=== PATIENT | male | born 2000 ===

== ENCOUNTER 2023-05-28 14:28 | Emergency (ER) | payer OTHER, SELFPAY ==
--- NOTE | ~2023-05-28 | XR_ITS ---
EXAMINATION: XR WRIST, RIGHT XR HAND, RIGHT CLINICAL INFORMATION: Pain. COMPARISON: None available. TECHNIQUE: 3 views of the right wrist/right hand. FINDINGS: Subtle minimally displaced fracture at the base of the fifth metacarpal. No other fracture or subluxation. No unexpected radiopaque foreign bodies. XR/XR hand wrist RT IMPRESSION: Minimally displaced fracture at the base of the fifth metacarpal.
--- NOTE | 2023-05-28 14:41 | ED_ITS ---
HPI - General Adult General Chief complaint: Psychiatric Symptoms Stated complaint: ? hand fracture Time Seen by Provider: 05/28/23 16:02 Source: patient Mode of arrival: ambulatory Limitations: no limitations History of Present Illness HPI narrative: Patient is a 22 year old male who presents to the emergency department who presents emergency department for evaluation of right hand pain, and suicidal ideations. He reports that he has been dealing with anger issues recently. Reporting suicidal ideations, when asked if he has a plan he reports ?the usual stuff, jumping off something?. He endorses recreational marijuana usage. Denies any additional drug or routine alcohol usage. He reports compliance with his Keppra and topiramate for his seizure disorder. Yesterday out of anger he punched a metal door with his right hand, he is right-hand dominant. Currently experiencing pain along the ulnar aspect of hand. Denies any additional physical complaints at this time Related Data Home Medications Medication Instructions Recorded Confirmed levetiracetam 750 mg 1,500 mg PO BID 05/28/23 05/28/23 tablet,extended release 24 hr topiramate 25 mg tablet 25 mg PO BID 05/28/23 05/28/23 Allergies Allergy/AdvReac Type Severity Reaction Status Date / Time No Known Allergies Allergy Verified 05/28/23 14:46 Review of Systems Review of Systems: Constitutional : No Fever, No Chills ENT/Mouth : No Ear Pain, No Nasal Congestion, No sore throat Eyes: No Eye Pain, No Swelling, No Redness Cardiovascular : No Chest Pain, No SOB Respiratory : No Cough, No Sputum, No Dyspnea Gastrointestinal : No Nausea, No Vomiting, No Diarrhea, No Hematochezia, No Melena Genitourinary : No Dysuria, No Urinary Frequency, No Hematuria Musculoskeletal : Positive as per HPI Skin : No Skin Lesions, No rash Neuro : No Weakness, No Numbness, No Paresthesias, No Dizziness, No Headache Psych : positive Anxiety, positive Depression, positive SI/HI Heme/Lymph: No Lymphadenopathy Endocrine : No Polyuria, No Polydipsia Yes all other systems are reviewed and are negative [facility] Past Medical History Attestation statement: The following information was validated with the patient. Source: old records reviewed Social History Social History Alcohol intake: current Alcohol intake frequency: a few times a week Alcohol type: beer Smoked in Last 30 Days: Yes Use of substances other than those prescribed or required for medical reasons: Yes Substance Use Type: Marijuana Substance Use Frequency: Chronic Longstanding Last Used Substance: Days (ago) Any prior treatment program specific to substance use: No Advance Directives: No Advance Directives Information Provided: No Healthcare Proxy: No Guardian: No Physical Exam ED Vital Signs: Vital Signs - 24 hr 05/28/23 15:29 Temperature 97.0 F Pulse Rate 83 Respiratory Rate 18 Blood Pressure 125/79 Pulse Oximetry 100 Oxygen Delivery Method Room Air BMI result Body Mass Index 21.4 Appearance: Alert.?Oriented to person, place and time. No acute distress.?Normal affect. Eyes: Pupils equal, round and reactive to light.? ENT: Pharynx normal.?? Neck: Normal inspection.? Neck supple.?? CVS: Heart sounds normal. Normal heart rate and rhythm.? Pulses normal.?? Respiratory: No respiratory distress.? Lung sounds clear to auscultation bilaterally?? Abdomen: Soft and non-tender. Normoactive bowel sounds. ?? Skin: Skin warm and dry.? Normal skin color.? Extremities: No extremity edema.? 2+ radial pulse bilaterally. Ecchymosis over the palm are right hand over 3rd-5th metacarpal. Full AROM to right hand and wrist. Neuro: Moves all extremities spontaneously. Sensation intact bilaterally. CN II- XII intact. No focal neuro deficits. Ambulates with normal steady gait. Course Course Course Narrative: This is an RME: Additional HPI, ROS, PE not included below will be deferred to primary provider. 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 He states that he became angry and punched a metal door. he states that he believes that he has anger issues and expresses vague SI, none currently. Reporting that he would like to be evaluated by crisis. Plan: labs, UDS, Xr right hand and wrist, keppra and topiramate levels ordered. Reevaluation(s) Reevaluation #1: CBC and CMP are overall unremarkable. XR revealing fracture at the base of the 5th metacarpal, placed in an ulnar gutter splint, remained neurovascularly intact distally after application. Will require outpatient follow-up with Orthopedics. Time: 17:02 Reevaluation #2: Patient was evaluated by their team, at this time patient is cleared for discharge home, he will have [facility] follow-up within the next few days, received therapy referrals, safety plan developed with patient and girlfriend. Reviewed reasons to return back to the emergency department Time: 19:57 Medications Administered Discontinued Medications Generic Name Dose Route Start Last Admin Trade Name Freq PRN Reason Stop Dose Admin Topiramate 25 mg 05/28/23 21:00 05/28/23 20:10 Topiramate 25 Mg Tablet PO 25 mg BID GERRY Administration Medical Decision Making Medical Decision Making [facility] Narrative: Patient is a 22-year-old male with past medical history of juvenile myoclonic ep ilepsy on Keppra and Topiramate, benign brain tumor followed by Neurology Dr. Bob, presenting to the emergency department for evaluation traumatic right hand pain and suicidal ideations as per HPI. At the time my examination he is overall well-appearing. The right upper extremity is neurovascularly intact distally, ecchymosis as per physical exam, full AROM. Will obtain XR to evaluate for fracture. Otherwise physical examination is benign. Endorsing SI with a vague plan. Will refer to care team for further evaluation as to whether inpatient psychiatric services are required. Med reconciliation to be completed. Basic labs for medical clearance. Differential Diagnosis Differential Diagnoses: The differential diagnosis associated with the presentation includes (Depression, anxiety, suicidal ideations, mood disorder, substance use disorder, fracture, sprain) Admission/Observation Consideration of admission/observation: Escalation of care including admission/observation considered (Physician observation for care team evaluation and determination as to whether inpatient psychiatric services are required.) Lab Data [facility] Lab Attestation statement: I reviewed the patient's lab results. (See course narrative for further detail) 05/28/23 16:27 05/28/23 16:26 Labs: Lab Results 05/28/23 05/28/23 05/28/23 Range/Units 16:06 16:06 16:26 WBC (4.8-10.8) X10*3/uL RBC (4.60-5.80) X10*6/uL Hgb (14.0-18.0) g/dl Hct (42.0-52.0) % MCV (80.0-98.0) fL MCH (27.0-33.0) pg MCHC (31.0-36.0) g/dl RDW (11.0-16.0) % Plt Count (160-400) X10*3/uL MPV (9.4-12.4) fL Immature Gran % (Auto) (0.0-0.4) % Neut % (Auto) (45-73) % Lymph % (Auto) (20-40) % Delta % (Auto) (2-11) % Eos % (Auto) (0-4) % Baso % (Auto) (0-2) % Lymph # (Auto) (1.2-4.9) X10*3/uL Delta # (Auto) (0.1-1.2) X10*3/uL Eos # (Auto) (0.0-0.4) X10*3/uL Baso # (Auto) (0.0-0.2) X10*3/uL Abs Immat Gran (auto) (0.00-0.03) X10*3/uL Absolute Neuts (auto) (2.0-8.3) x10*3/uL Absolute Nucleated RBC (0.0-0.012) X10*3/uL Nucleated RBC % (auto) (0.0-0.2) /100WBC Sodium 141 (135-145) mmol/L Potassium 4.3 (3.3-5.1) mmol/L Chloride 106 (96-108) mmol/L Carbon Dioxide 24 (22-29) mmol/L Anion Gap 15 (12-20) BUN 11 (9-16) mg/dL Creatinine 0.98 (0.5-1.4) mg/dL Estim Creat Clear Calc 117.5 Estimated GFR > 60 Random Glucose 95 (60-115) mg/dL Calcium 9.8 (8.4-10.2) mg/dL Total Bilirubin 0.6 (0.0-1.0) mg/dL Direct Bilirubin 0.3 (0.0-0.5) mg/dL AST 14 (5-37) U/L ALT 20 (0-40) U/L Alkaline Phosphatase 67 (39-117) U/L Total Protein 8.1 H (6.5-8.0) g/dL Albumin 4.5 (3.5-5.0) g/dL Urine Color Yellow Urine Appearance Clear Urine pH 6.5 (5.0-9.0) Ur Specific [place] 1.025 (1.005-1.025) Urine Protein Negative (Neg-Trace) mg/dL Urine Glucose (UA) Negative (Negative) mg/dL Urine Ketones Negative (Negative) mg/dL Urine Blood Negative (Negative) Urine Nitrite Negative (Negative) Ur Leukocyte Esterase Negative (Negative) Urine Opiates Screen Not Detected (Not Detect) Urine Fentanyl Screen Not Detected (Not Detect) Ur Barbiturates Screen Not Detected (Not Detect) Ur Phencyclidine Scrn Not Detected (Not Detect) Ur Amphetamines Screen Not Detected (Not Detect) U Benzodiazepines Scrn Not Detected (Not Detect) Urine Cocaine Screen Not Detected (Not Detect) U Marijuana (THC) Screen POSITIVE H (Not Detect) Ethyl Alcohol mg/dL 05/28/23 05/28/23 Range/Units 16:26 16:27 WBC 9.5 (4.8-10.8) X10*3/uL RBC 5.57 (4.60-5.80) X10*6/uL Hgb 15.6 (14.0-18.0) g/dl Hct 48.8 (42.0-52.0) % MCV 87.6 (80.0-98.0) fL MCH 28.0 (27.0-33.0) pg MCHC 32.0 (31.0-36.0) g/dl RDW 12.9 (11.0-16.0) % Plt Count 277 (160-400) X10*3/uL MPV 9.7 (9.4-12.4) fL Immature Gran % (Auto) 0.4 (0.0-0.4) % Neut % (Auto) 67.9 (45-73) % Lymph % (Auto) 24.2 (20-40) % Delta % (Auto) 6.3 (2-11) % Eos % (Auto) 0.7 (0-4) % Baso % (Auto) 0.5 (0-2) % Lymph # (Auto) 2.3 (1.2-4.9) X10*3/uL Delta # (Auto) 0.6 (0.1-1.2) X10*3/uL Eos # (Auto) 0.1 (0.0-0.4) X10*3/uL Baso # (Auto) 0.1 (0.0-0.2) X10*3/uL Abs Immat Gran (auto) 0.04 H (0.00-0.03) X10*3/uL Absolute Neuts (auto) 6.4 (2.0-8.3) x10*3/uL Absolute Nucleated RBC 0.000 (0.0-0.012) X10*3/uL Nucleated RBC % (auto) 0.0 (0.0-0.2) /100WBC Sodium (135-145) mmol/L Potassium (3.3-5.1) mmol/L Chloride (96-108) mmol/L Carbon Dioxide (22-29) mmol/L Anion Gap (12-20) BUN (9-16) mg/dL Creatinine (0.5-1.4) mg/dL Estim Creat Clear Calc Estimated GFR Random Glucose (60-115) mg/dL Calcium (8.4-10.2) mg/dL Total Bilirubin (0.0-1.0) mg/dL Direct Bilirubin (0.0-0.5) mg/dL AST (5-37) U/L ALT (0-40) U/L Alkaline Phosphatase (39-117) U/L Total Protein (6.5-8.0) g/dL Albumin (3.5-5.0) g/dL Urine Color Urine Appearance Urine pH (5.0-9.0) Ur Specific [place] (1.005-1.025) Urine Protein (Neg-Trace) mg/dL Urine Glucose (UA) (Negative) mg/dL Urine Ketones (Negative) mg/dL Urine Blood (Negative) Urine Nitrite (Negative) Ur Leukocyte Esterase (Negative) Urine Opiates Screen (Not Detect) Urine Fentanyl Screen (Not Detect) Ur Barbiturates Screen (Not Detect) Ur Phencyclidine Scrn (Not Detect) Ur Amphetamines Screen (Not Detect) U Benzodiazepines Scrn (Not Detect) Urine Cocaine Screen (Not Detect) U Marijuana (THC) Screen (Not Detect) Ethyl Alcohol < 10 mg/dL Independent Interpretation I performed an independent interpretation of an: Plain X-Ray (Have personally interpreted x-ray of the right hand and agree with radiologist impression, fracture at the base of the right 5th metacarpal) Radiology Impression Discussion of test interpretation with radiology: I have reviewed the radiologist's reading. Radiologist Impression: XR/XR hand wrist RT IMPRESSION: Minimally displaced fracture at the base of the fifth metacarpal. Independent Historian Clinical information obtained from an independent historian. History obtained from or confirmed by: Spouse (Patient's girlfriend, Natalie is present at bedside who confirms history) Discharge Plan Discharge Clinical Impression: Fracture of fifth metacarpal bone of right hand, Suicidal ideation Patient Disposition: Home, Self-Care Instructions: Hand Fracture (ED) Additional Instructions: A splint was placed your right hand, this cannot get wet. It should remain in place at all times until you are evaluated by orthopedics. I have provided you with their contact information please call their office 1st thing tomorrow morning to arrange for a follow-up. You can take ibuprofen 200 mg, 3 tablets (600mg) every 6-8 hours as needed for pain, in addition to Tylenol 500 mg, 2 tab lets (1,000mg) every 4-6 hours as needed for pain, but not to exceed 3 doses daily (3,000mg).? If you develop worsening pain, swelling, numbness, tingling, then this should be re-evaluated. Referrals were sent for obtaining a new therapist, you may return back to emergency department any new or worsening symptoms or concerns. Prescriptions: No Action levetiracetam 750 mg tablet extended release 24 hr 1,500 mg PO BID topiramate 25 mg tablet 25 mg PO BID Referrals: Rick Garcia PA-C [Physician Supervisor [employer]] - Interventions: [place]-Suicide Risk Severity Scale Last Done: 05/28/23 16:11 ED Discharge Assessment Last Done: 05/28/23 20:26 Discharge Date/Time: 05/28/23 20:37
[2023-05-28 15:29] VITALS: BP 125/79; PULSE 83; RESP 18; TEMP 36.1; O2SAT 100; BMI 21.4
[2023-05-28 16:29] LABS: Appearance Urine Clear; Color Urine Yellow; Glucose Urine UA Negative (Negative); Leukocyte Esterase Urine Negative (Negative); Nitrite Urine Negative (Negative); PH 6.5 (5.0-9.0); Specific Gravity - Urine 1.025 (1.005-1.025); Urine Blood Negative (Negative); Urine Ketones Negative (Negative); Urine Protein Negative (Neg-Trace)
[2023-05-28 16:32] LABS: MANUAL DIFF FLAG NO
[2023-05-28 16:36] LABS: Basophils Absolute Auto 0.1 X10*3/uL (0.0-0.2); Basophils Percent Auto 0.5 % (0-2); Eosinophils Absolute Auto 0.1 X10*3/uL (0.0-0.4); Eosinophils Percent Auto 0.7 % (0-4); Hematocrit 48.8 % (42.0-52.0); Hemoglobin 15.6 g/dl (14.0-18.0); Imm Gran Abs Auto 0.04 X10*3/uL (0.00-0.03); Imm Gran Pct Auto 0.4 % (0.0-0.4); Lymphocytes Absolute Auto 2.3 X10*3/uL (1.2-4.9); Lymphocytes Percent Auto 24.2 % (20-40); Mean Corpuscular Volume 87.6 fL (80.0-98.0); Mean Platelet Volume 9.7 fL (9.4-12.4); Monocytes Absolute Auto 0.6 X10*3/uL (0.1-1.2); Monocytes Percent Auto 6.3 % (2-11); Neutrophils Absolute Auto 6.4 x10*3/uL (2.0-8.3); Neutrophils Percent Auto 67.9 % (45-73); Platelet Count 277 X10*3/uL (160-400); Red Blood Count 5.57 X10*6/uL (4.60-5.80); Red Cell Distribution Width 12.9 % (11.0-16.0); White Blood Count 9.5 X10*3/uL (4.8-10.8)
[2023-05-28 16:40] LABS: Amphetamine Screen Urine Not Detected (Not Detect); Barbiturates, Urine Not Detected (Not Detect); Benzodiazepines Screen Urine Not Detected (Not Detect); Cannabinoid Screen Urine POSITIVE (Not Detect); Cocaine Screen Urine Not Detected (Not Detect); Fentanyl, urine Not Detected (Not Detect); Opiate Screen Urine Not Detected (Not Detect); Phencyclidine Screen Urine Not Detected (Not Detect)
--- NOTE | 2023-05-28 16:45 | PC.NURSE ---
Pt being escorted by pct/security to xray
[2023-05-28 16:46] LABS: Ethanol < 10 mg/dL
[2023-05-28 16:48] LABS: Alanine Aminotransferase 20 U/L (0-40); Albumin Level 4.5 g/dL (3.5-5.0); Alkaline Phosphatase 67 U/L (39-117); Anion Gap 15 (12-20); Aspartate Amino Transferase 14 U/L (5-37); Bilirubin Direct 0.3 mg/dL (0.0-0.5); Bilirubin Total 0.6 mg/dL (0.0-1.0); Blood Urea Nitrogen 11 mg/dL (9-16); Calcium 9.8 mg/dL (8.4-10.2); Carbon Dioxide 24 mmol/L (22-29); Chloride 106 mmol/L (96-108); Creatinine Clr Calc Pharmacy 117.5; Estimated Glomerular Filt Rate > 60; Glucose Random 95 mg/dL (60-115); Potassium 4.3 mmol/L (3.3-5.1); Sodium 141 mmol/L (135-145); Total Protein 8.1 g/dL (6.5-8.0)
[2023-05-28] MEDS: Topiramate 25 MG TABLET PO (20:10)
--- NOTE | 2023-05-28 20:58 | MHC.CARE ---
CARE Team put Puneet on 3 day follow up with [facility]
--- NOTE | 2023-05-29 12:45 | MHC.CARE ---
This morning a referral was e-mailed to [facility] for individual counseling. Also an e-mail was sent to Jayant Aguero at [facility] requesting a Underwater Hunter for Puneet. Note will be put in Daily Log for RAD Team to follow up tomorrow to ask about availability time line.
[2023-06-01 19:28] LABS: Levetiracetam Keppra 32.6 mcg/mL (6.0-46.0)
[2023-06-03 03:02] LABS: Topiramate 1.7 mcg/mL (see note)
== END 2023-05-28 20:37 | disposition home or self-care (01) ==
PROVIDERS: Physician Assistant Medical; Emergency Provider Emergency Medicine Emergency Medical Services
DX: S62.306A Unspecified fracture of fifth metacarpal bone, right hand, initial encounter for closed fracture (principal); M79.641 Pain in right hand; R45.851 Suicidal ideations; X79.XXXA Intentional self-harm by blunt object, initial encounter; Y93.9 Activity, unspecified; Y92.9 Unspecified place or not applicable; Y99.9 Unspecified external cause status; Z79.899 Other long term (current) drug therapy
CPT/HCPCS: 29130; 36415; 73110; 73130; 80048; 80076; 80177; 80201; 80307; 81003; 85025; 99284; S9485

== ENCOUNTER 2023-06-02 12:18 | Outpatient (AMB) | payer OTHER, SELFPAY ==
--- NOTE | 2023-06-02 12:33 | A.OFFVIS_ITS ---
Intake Vital Signs 06/02/23 12:39 Height 6 ft Weight 157 lb BMI 21.3 Handedness Right Intake Visit Reasons: FC - right fifth metacarpal fx, 05/27/23 Intake Note: Puneet is a 22 year old right right hand dominant male who presents today for a fracture care appointment s/p right hand fx, DOI 05/27/23. Was placed in a splint at the ED. Patient reports out of anger he punched a metal door with his right hand. He states having pain along the ulnar aspect of the hand. Having off and on numbness and tingling on the right pinky finger. Allergies Penicillins Allergy (Intermediate, Verified 06/02/23 12:37) Unknown amoxicillin Allergy (Verified 06/02/23 12:37) Unknown erythromycin Allergy (Intermediate, Uncoded 06/02/23 12:37) Unknown HPI FC - right fifth metacarpal fx, 05/27/23 HPI Details Mr. Aguero is a 22 yo male whop presented to the office today after punching a wall out of anger on 05/27/23. He presented to the ED on 05/28/23 where x-rays were obtained and he was found to have a nondisplaced fracture at the base of the 5th metacarpal. He was splinted and instructed to f/u out patient with orthopedics out patient. 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 Able to make a full fist. Able to extend all digits. Sensation intact. Capillary refill is brisk. Office Procedures Fracture Care Fracture Billing Code: Fracture Billing Code Assessment & Plan Assessment & Plan (1) Fracture of fifth metacarpal bone of right hand: Code(s): S62.306A - Unspecified fracture of fifth metacarpal bone, right hand, initial encounter for closed fracture Plan: Mr. Aguero is a 22 yo male whop presented to the office today after punching a wall out of anger on 05/27/23. He presented to the ED on 05/28/23 where x-rays were obtained and he was found to have a nondisplaced fracture at the base of the 5th metacarpal. He was splinted and instructed to f/u out patient with orthopedics out patient. X-rays obtained in the office today remonstrate right base of the 5th metacarpal fracture with mild displacement. The patient was placed in an ulnar gutter thermal molded splint off the shelf. He is to lift nothing heavier than a coffee cup or cell phone. May remove for bathing only. He will f/u in 5 weeks with repeat x-rays, sooner if needed. Orders: Orders XR hand RT min 3V Today M79.643 - Pain in unspecified hand Coding Level of Care Code New Pt Level 4 (88147) Diagnoses Fracture of fifth metacarpal bone of right hand S62.306A CPT Codes Fracture Care - Fracture Billing Code: Fracture Billing Code ([id number])
[2023-06-02 12:39] VITALS: BMI 21.3
== END 2023-06-02 13:18 | disposition home or self-care (01) ==
PROVIDERS: Visit Provider Physician Assistant
DX: S62.316A Displaced fracture of base of fifth metacarpal bone, right hand, initial encounter for closed fracture (principal)
CPT/HCPCS: 99204

== ENCOUNTER → 2023-06-02 12:18 | Outpatient (BNVA) | payer OTHER, SELFPAY | PROVIDERS: Visit Provider Physician Assistant ==

== ENCOUNTER 2023-06-03 12:30 | Outpatient (REF) | payer OTHER, SELFPAY ==
--- NOTE | ~2023-06-03 | XR_ITS ---
EXAMINATION: XR HAND, RIGHT CLINICAL INFORMATION: Hand pain. COMPARISON: 05/28/2023 TECHNIQUE: PA, lateral, and oblique views of the right hand. XR/XR hand RT min 3V FINDINGS AND IMPRESSION: Again noted is minimally displaced oblique fracture of the proximal metaphysis of the fifth metacarpal. No significant change in position of fragments compared to 05/28/2023. No periosteal reaction. No new osseous injury. Carpal bones are intact. Alignment is normal in the hand and wrist.
== END 2023-06-03 12:31 | disposition home or self-care (01) ==
LOC: HO.HOSX 12:30
PROVIDERS: Visit Provider Physician Assistant
DX: M79.641 Pain in right hand (principal)
CPT/HCPCS: 73130

== ENCOUNTER 2023-07-10 09:36 | Outpatient (AMB) | payer OTHER, SELFPAY ==
--- NOTE | 2023-07-10 09:40 | A.OFFVIS_ITS ---
Intake Vital Signs 07/10/23 09:46 Height 5 ft Weight 157 lb BMI 30.7 Intake Visit Reasons: OV-right fifth metacarpal fx, 05/27/23-w/xrays Intake Note: Puneet 22 yr old male presents today for his follow up visit for his right hand fracture of fifth metacarpal DOI 05/27/23. Xrays updated inoffice. States he has been using his brace only at work. States he has no pain just little discomfort randomly and is able to make a full close fist. Allergies Penicillins Allergy (Intermediate, Verified 07/10/23 09:45) Unknown amoxicillin Allergy (Verified 07/10/23 09:45) Unknown erythromycin Allergy (Intermediate, Uncoded 07/10/23 09:45) Unknown HPI OV-right fifth metacarpal fx, 05/27/23-w/xrays HPI Details 22-year-old right hand dominant male who presents in the office today for a follow up of a right 5th metacarpal fracture, which occurred on 05/27/2023 status post punching a wall out of anger. He reports he has only been using the brace while at work. He claims he has no pain, but does have mild discomfort randomly. He confirms he is able to make a closed fist. 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 No ecchymosis, erythema, or edema. No tenderness to palpation over the right 5th metacarpal at the fracture site. Able to perform full finger flexion, extension, abduction, adduction, finger cross, okay sign, and thumbs up without deficit. Able to make a closed fist. Sensation intact. Capillary refill is brisk. Radial pulse intact. Assessment & Plan Assessment & Plan (1) Fracture of fifth metacarpal bone of right hand: Code(s): S62.306A - Unspecified fracture of fifth metacarpal bone, right hand, initial encounter for closed fracture Qualifiers: Encounter type: subsequent encounter Fracture alignment: nondisplaced Fracture healing: with routine healing Fracture type: closed Metacarpal location: unspecified portion of metacarpal Qualified Code(s): S62.306D - Unspecified fracture of fifth metacarpal bone, right hand, subsequent encounter for fracture with routine healing Plan Mr. Aguero is a 22-year-old right hand dominant male who presents in the office today for a follow up of a right 5th metacarpal fracture, which occurred on 05/27/2023 status post punching a wall out of anger. He reports he has only been using the brace while at work. He claims he has no pain, but does have mild discomfort randomly. He confirms he is able to make a closed fist. The patient may discontinue the use of the brace at this time. He may return to normal activities as tolerated. He should refrain from high impact activities for an additional 2 weeks. Follow up will be PRN, or sooner if needed. X-rays of the right hand which were obtained while in the office today and were reviewed by me, Shaista Buitrago PA-C, revealed a healed 5th metacarpal fracture. Orders: Orders XR hand RT min 3V Today M79.643 - Pain in unspecified hand Patient Instructions: Scribed for Shaista Buitrago PA-C by Mervat Fry medical cost consultant, on 07/10/2023 at 9:38 am, EST. Coding Level of Care Code Global (52283) Diagnoses Closed nondisplaced fracture of fifth metacarpal bone of right hand with routine healing, unspecified portion of metacarpal, subsequent encounter S62.306D Encounter type: subsequent encounter Fracture alignment: nondisplaced Fracture healing: with routine healing Fracture type: closed Metacarpal location: unspecified portion of metacarpal
[2023-07-10 09:46] VITALS: BMI 30.7
== END 2023-07-10 09:51 | disposition home or self-care (01) ==
PROVIDERS: Visit Provider Physician Assistant
DX: S62.306D Unspecified fracture of fifth metacarpal bone, right hand, subsequent encounter for fracture with routine healing (principal)
CPT/HCPCS: 99213

== ENCOUNTER 2023-07-10 17:21 | Outpatient (REF) | payer OTHER, SELFPAY ==
--- NOTE | ~2023-07-10 | XR_ITS ---
EXAMINATION: XR HAND, RIGHT CLINICAL INFORMATION: Pain. COMPARISON: Radiographs dated 06/02/2020 01/15/2023. TECHNIQUE: PA, lateral, and oblique views of the right hand. FINDINGS: Bony alignment and mineralization are normal. A mildly displaced transverse fracture is redemonstrated of the base of the right fifth metacarpal bone, in stable alignment. A faint fracture line is redemonstrated. There is no significant new callus formation. The proximal and distal carpal rows are intact. No focal soft tissue swelling, gas or foreign body is seen. XR/XR hand RT min 3V IMPRESSION: A stable mildly displaced transverse fracture is redemonstrated of the base of the right fifth metacarpal bone. No significant new callus formation is noted.
== END 2023-07-10 17:22 | disposition home or self-care (01) ==
LOC: HO.HOSX 17:21
PROVIDERS: Visit Provider Physician Assistant
DX: S62.306D Unspecified fracture of fifth metacarpal bone, right hand, subsequent encounter for fracture with routine healing (principal)
CPT/HCPCS: 73130

== ENCOUNTER 2024-03-08 18:26 | Emergency (ER) | payer SELFPAY ==
[2024-03-08 18:49] VITALS: BP 133/78; BP 141/76; PULSE 89; RESP 16; TEMP 36.6; O2SAT 100; O2SAT 99; BMI 27.4
--- NOTE | 2024-03-08 18:49 | ED_ITS ---
HPI - Back Pain/Injury General Chief Complaint: Back Pain/Injury Stated Complaint: lower back pain post heavy lifting at work Time Seen by Provider: 03/08/24 23:06 Source: patient Mode of arrival: ambulatory Limitations: no limitations History of Present Illness HPI Narrative: 23 yo male not on blood thinners no IVDA was lifting popcorn machine at work today and felt a pull and pain in back with pain going down right lower leg. Now reports pain moving right leg and pain walking. Tried tramadol and motrin prior to arrival. No numbness, weakness, loss of control of bowel or bladder. MD elicited complaint: back injury Pertinent past history: prior back pain Onset (ago): day(s) (today) Timing: constant Severity: moderate Similar Symptoms Previously: No Quality: sharp Location: lumbar spine Radiation: right upper leg Exacerbating factors: movement, walking and lifting Relieving factors: immobilization Context: while lifting Associated symptoms: denies other symptoms Treatments prior to arrival: NSAIDS Work related injury: Yes Related Data Home Medications ?Medication ?Instructions ?Recorded ?Confirmed levetiracetam 750 mg 1,500 mg PO BID 05/28/23 05/28/23 tablet,extended release 24 hr topiramate 25 mg tablet 25 mg PO BID 05/28/23 05/28/23 Previous Rx's ?Medication ?Instructions ?Recorded diazepam 5 mg tablet (Valium) 5 mg PO TID PRN muscle spasm #10 03/08/24 tabs ibuprofen 600 mg tablet 600 mg PO Q6H PRN pain #30 tabs 03/08/24 lidocaine 5 % topical patch 1 patch topical DAILY #30 ea 03/08/24 prednisone 20 mg tablet 40 mg (2 x 20 mg) PO DAILY 5 days 03/08/24 #10 tabs Allergies Allergy/AdvReac Type Severity Reaction Status Date / Time Penicillins Allergy Intermediate Unknown Verified 03/08/24 18:51 amoxicillin Allergy Unknown Verified 03/08/24 18:51 erythromycin Allergy Intermediate Unknown Uncoded 07/10/23 09:45 Review of Systems Review of Systems: Constitutional : No Weight loss, No Fever, No Chills, ENT/Mouth : No Hearing loss, No Ear Pain, No Nasal Congestion, No Sinus Pain, No Hoarseness, No sore throat, No Rhinorrhea, No Swallowing Difficulty Cardiovascular : No Chest Pain, No SOB Respiratory : No Cough, No Dyspnea Gastrointestinal : No Nausea, No Vomiting, No Diarrhea, No abdominal Pain, No Hematochezia, No Melena Genitourinary : No Dysuria, No Urinary Frequency, No Hematuria, No Urinary Incontinence, Musculoskeletal : positive back pain Skin : No Skin Lesions, No rash Neuro : No Weakness, No Numbness, No Paresthesias, no loss of bowel or bladder incontinence, no saddle anesthesia all other systems reviewed and are negative [facility] Past Medical History Attestation statement: The following information was validated with the patient. 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 Oriented X3. No acute distress. Eyes: Pupils equal, round and reactive to light. ENT: Pharynx normal. Neck: Normal inspection. Neck supple. CVS: Normal heart rate and rhythm. Pulses normal. Respiratory: No respiratory distress. Abdomen: Soft and nontender. Back: lower lumbar pain Skin: Skin warm and dry. Normal skin color. Normal skin turgor. Extremities: No lower extremity edema. bilateral leg raises are positive R with 15 degrees L 45 degrees, distal bounding pulses 2+, L5 5/5 bilaterally, reflexes normal no clonus Neuro: Oriented X 3. No motor deficit. No sensory deficit. Course Course Course Narrative: This is a Rapid Medical Examination (RME) performed by Cecil Rosa PA-C in triage. Full HPI, ROS, assessment and treatment plan per primary provider in the Main ED. 23 yo male with history of epilepsy who presents to the ER for evaluation of low back pain that started at 2:45pm after lifting heavy popcorn machine at work. unable to walk since. took ibuprofen and tramadol with minimal relief. no issues with bowel/bladder, no numbness or tingling in the legs but reports difficulty moving his right leg. nontender lumbar area on exam in triage, pain w/ movement Plan: mediate and reassess pain Medical Decision Making Medical Decision Making MDM Narrative: 23 yo male with no sig PMH not on thinners here with back injury at work did report it to supervisors. He is [place] intact no cauda equina symptoms no red flags at this time suspect herniated disc will start on valium, pain medications, prednisone and follow up with PCP for PT and precautions to return. Differential Diagnosis Differential Diagnoses: The differential diagnosis associated with the presentation includes low back strain, lumbar radiculopathy Admission/Observation Consideration of admission/observation: Escalation of care including admission/observation considered stable for outpatient management no cauda equina symptoms Independent Historian Clinical information obtained from an independent historian. History obtained from or confirmed by: Spouse Prescription Management I considered prescription management with: Pain Medication and Other Discharge Plan Discharge Clinical Impression: Lumbar radiculopathy, Strain of lumbar region Patient Disposition: Home, Self-Care Instructions: Low Back Strain (ED), Lumbar Radiculopathy (ED) Additional Instructions: please follow up with your primar care doctor for physical therapy return for worsening pain loss of control of bowel or bladder, numbness in genital area or any other concerns remember no lifting more than 10lbs in 2 weeks Prescriptions: New diazepam [Valium] 5 mg tablet 5 mg PO TID PRN (Reason: muscle spasm) Qty: 10 0RF Rx Instructions: partial fill is okay lidocaine 5 % adhesive patch,medicated 1 patch topical DAILY Qty: 30 0RF Rx Instructions: leave on most painful area for up to 12 hrs prednisone 20 mg tablet 40 mg PO DAILY 5 Days Qty: 10 0RF ibuprofen 600 mg tablet 600 mg PO Q6H PRN (Reason: pain) Qty: 30 0RF No Action levetiracetam 750 mg tablet extended release 24 hr 1,500 mg PO BID topiramate 25 mg tablet 25 mg PO BID Stand Alone Forms: Work/School Release Print Language: Spanish
[2024-03-08] MEDS: predniSONE 20 MG TABLET 40 MG PO (23:56)
[2024-03-08] MEDS: diazePAM 5 MG TABLET PO (23:57)
[2024-03-08] MEDS: Lidocaine 4 % Patch ADH..PATCH 1 PATCH TRANSDERMA (23:57)
[2024-03-09 00:09] VITALS: BP 127/78; PULSE 72; RESP 16; TEMP 36.1; O2SAT 99
== END 2024-03-09 00:10 | disposition home or self-care (01) ==
PROVIDERS: Emergency Provider Emergency Medicine
DX: S39.012A Strain of muscle, fascia and tendon of lower back, initial encounter (principal); M54.16 Radiculopathy, lumbar region; X50.0XXA Overexertion from strenuous movement or load, initial encounter; Y93.9 Activity, unspecified; Y92.9 Unspecified place or not applicable; Y99.0 Civilian activity done for income or pay
CPT/HCPCS: 99283; 99284

== ENCOUNTER 2025-08-16 12:53 | Outpatient (AMB) | payer OTHER, SELFPAY ==
--- NOTE | 2025-08-16 12:54 | MHC.OFFVIS ---
Vital Signs 08/16/25 13:12 Height 6 ft Weight 170 lb BMI 23.1 BP 114/70 Blood Pressure Location Lt brachial Position Sitting Respiration 16 Pulse 61 Pulse Source Pulse Oximeter Pulse Oximetry (%) 99 Oxygen Delivery Method Room Air Intake Visit Reasons: 6 month f/u VR patient [employer] Worker Required: No Allergies Penicillins Allergy (Intermediate, Verified 08/16/25 13:11) Unknown amoxicillin Allergy (Verified 08/16/25 13:11) Unknown erythromycin Allergy (Intermediate, Uncoded 08/16/25 13:11) Unknown Medication List - Last Reconciled 08/16/25 by Maddie Nicole, JOSE ibuprofen 600 mg PO Q6H PRN levetiracetam ER 1,500 mg (2 x 750 mg) PO BID 30 days HPI Comments Details: Puneet is a 24-year-old male patient with a past medical history of epilepsy following in the clinic for generalized seizures. It is noted in prior records that his epilepsy is likely JACKIE. He was diagnosed in 2020 during an admission to [facility]. He has been taking levetiracetam extended-release 750mg tablets) 2 tablets twice daily). He was last seen in January of 2025 and at that time has been stable without any recurrent seizure events. He tells me today, he has not had any seizure he believes that his last seizure was approximately 3 years ago or more. He denies abnormal movements, awakening from sleep was blood on his pillow, loss of consciousness, tonic-clonic events, or loss of awareness. He does however note some impression and feelings of ?spaciness?. He has been feeling this way for some time and is not currently having thoughts of suicide. He has got about getting a therapist in the past however has not been able to do so. Has also not seen primary care in quite some time though had plans to discuss starting on an antidepressant. He tells me that he has been compliant with his levetiracetam without any missed doses. He tolerates the medication well and from what he can remember, he has had depression even before he started the levetiracetam without any significant change since taking the medication. He is currently driving and working at [employer]. 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 Prior workup: Routine EEG permanent at [facility] in 2019: Within normal limits Ambulatory EEG at [facility] in 2019: Frontally predominant spike and wave and polyspike and wave discharges MRI of the brain in October 2020: Right cerebellar vermis lesion MRI brain with and without at [facility] in May of 2021: Small vermis lesion, hyperintense FLAIR, hypo on T1 and amy, no change from previous scan reported [facility] Medical History (Updated 08/16/25 @ 13:35 by Maddie Nicole CNP) Brain lesion Epilepsy Social History Alcohol intake: current Alcohol intake frequency: a few times a week Alcohol type: beer Substance Use Type: Marijuana Current occupational status: employed 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 Review of Systems Const All systems reviewed & are unremarkable except as noted in HPI and below Physical Exam Const General: cooperative, healthy appearing, comfortable and no acute distress Nutritional Appearance: well nourished Orientation/consciousness: patient oriented x3 Limitations: no limitations HEENT Head: Yes normal to inspection and Yes normocephalic Eyes General: appearance normal, both eyes and all related structures Visual Hunt: normal visual hunt by confrontation Alignment and Position: alignment normal Periorbital: periorbital findings normal Eyelids: Yes eyelids normal Conjunctivae: conjunctivae normal Sclerae: sclerae normal Neuro General: patient oriented x3 and deep tendon reflexes 2+ bilaterally Cranial nerves: Yes CN's II-XII intact bilaterally and Yes Facial sensation intact/muscles of mastication intact Cognition (Neuro): normal cognition Gait exam (Neuro): Normal gait present Motor exam (neuro): 5/5 motor strength present throughout and no tremor noted Sensory Exam: double simultaneous stimulation for sensation normal Romberg Test: Negative Pupils: Normal pupillary reactivity/response: bilateral Psych Appearance: grossly normal Mental Status: mental status grossly normal Speech and movement: Normal speech and movement present and Clear speech present Affect: normal affect Attitude: cooperative Thought process: Normal thought process present Thought content: Normal thought content present Insight: Good insight present (Psych) Judgement: Good judgement present (Psych) Assessment & Plan Assessment & Plan (1) Epilepsy: Code(s): G40.909 - Epilepsy, unspecified, not intractable, without status epilepticus Category: Medical (2) Depression: Code(s): F32.A - Depression, unspecified Category: Medical Plan Puneet is a 24-year-old male patient with a past medical history of epilepsy following in the clinic for generalized seizures. His seizures has been stable and well controlled on levetiracetam 1500 mg twice daily (two 750 mg tablets twice daily). He does however mentioned today that his moods have been depressed for quite some time without obvious cause for the levetiracetam. He was hoping to address this with primary care however he has not seen primary care in quite some time. We discussed the importance of establishing care with a primary care provider and I will start him on a low-dose antidepressant in the meantime with close follow up. Has agreeable to this plan. I also did encourage him to start seeking out a therapist if he wishes to do so. Plan: Continue levetiracetam 1500 mg twice daily Needs follow-up with primary care - will send a request for assistance with this Start low dose sertraline 25 for depression. Patient was educated at length on possible side effects and when to seek medical attention should he have any worsening of mood or thoughts of suicide while on this medication. Medications: New sertraline 25 mg PO BEDTIME 30 tabs 5RF 30 days Coding Level of Care Code Est Pt Level 4 (06728) Diagnoses Epilepsy G40.909 Depression F32.A
[2025-08-16 13:12] VITALS: BP 114/70; PULSE 61; RESP 16; O2SAT 99; BMI 23.1
== END 2025-08-16 13:26 | disposition home or self-care (01) ==
LOC: HO.HSM 12:54
PROVIDERS: PCP Family Medicine; Visit Provider Nurse Practitioner
DX: G40.909 Epilepsy, unspecified, not intractable, without status epilepticus (principal); F32.A Depression, unspecified
CPT/HCPCS: 99214

== ENCOUNTER → 2025-08-16 12:53 | Outpatient (BNVA) | payer OTHER, SELFPAY | PROVIDERS: PCP Family Medicine; Visit Provider Nurse Practitioner | DX: G40.909 Epilepsy, unspecified, not intractable, without status epilepticus (principal); F32.A Depression, unspecified | CPT/HCPCS: 99212 ==